=== PATIENT | female | born 1985 | race Caucasian/White ===

== ENCOUNTER 2017-10-20 16:05 | Emergency (ER) | payer BC ==
[2017-10-20] MEDS ORDERED: Ketorolac INJ* 30 MG/ML 1 ML VIAL IV PUSH ONE (16:37)
[2017-10-20] MEDS ORDERED: Metoclopramide IV* 5 MG/ML 2 ML VIAL IV ONE (16:37)
[2017-10-20] MEDS ORDERED: diPHENhydraMINE PO* 50 MG PO ONE (16:37)
[2017-10-20] MEDS ORDERED: NS 0.9% 1000 ML* 1,000 ML IV ONE (16:37)
[2017-10-20 19:27] VITALS: BP 122/65
--- NOTE | 2017-10-20 20:41 | ED ---
Ray Cortes Natalie, scribed for Ced Castañeda MD on 10/20/17 at 1714 . Headache - HPI Summary HPI Summary: The patient is a 32 y/o M presenting to the ED c/o severe headache with sudden onset an hour ago. The pain radiates from the base of her neck radiating to her nose. The pain is described as "inexplicably painful, most intense pounding headache ever." The pain is rated 8/10 in severity currently, but was 10/10 initially. Pt additionally c/o photophobia, nausea, vomiting, and generalized weakness. She used to have migraines when she was younger, and she had a similar headache during an episode when she fell and hit her head, resulting in a black out. She takes control and vitamins. - History Of Current Complaint Chief Complaint: EDHeadache Stated Complaint: HEADACHE Time Seen by Provider: 10/20/17 16:22 Hx Obtained From: Patient Onset/Duration: Sudden Onset, Still Present Initially Headache Was: "Worst Headache Ever", Initial Pain Scale(0-10)= - 10 Currently Pain Is: Current Pain Scale(0-10)= - 8 Timing: Constant Character: Throbbing Location of Headache: Occipital Radiates to: nose from both sides Aggravating Factor: Bright Lights Allevating Factors: Nothing Associated Signs And Symptoms: Nausea, Vomiting, Other (Noted In Comments) - photophobia, generalized weakness - Allergies/Home Medications Allergies/Adverse Reactions: Allergies Allergy/AdvReac Type Severity Reaction Status Date / Time No Known Allergies Allergy Verified 10/20/17 16:49 Home Medications: Home Medications Ethinyl Estradiol/Drospirenone [Chasity 28 Tablet (Nf)] 1 tab PO DAILY 10/20/17 [ History Confirmed 10/20/17] Vitamin TAB* 1 tab PO DAILY 10/20/17 [History Confirmed 10/20/17] PMH/Surg Hx/FS Hx/Imm Hx Endocrine/Hematology History: Denies: Hx Diabetes Neurological History: Reports: Hx Headaches, Hx Migraine Infectious Disease History: No Infectious Disease History: Denies: Traveled Outside the [place] in Last 30 Days - Family History Known Family History: Positive: Hypertension - Social History Alcohol Use: Occasionally Substance Use Type: Reports: None Smoking Status (MU): Never Smoked Tobacco Review of Systems Positive: Photophobia Positive: Vomiting, Nausea Positive: Headache, Weakness - generalized in the body All Other Systems Reviewed And Are Negative: Yes Physical Exam - Summary Physical Exam Summary: Appearance: The patient is well-nourished in no acute distress and in no acute pain. Skin: The skin is warm and dry and skin color reflects adequate perfusion. HEENT: The head is normocephalic and atraumatic. The pupils are equal and reactive. The conjunctivae are clear and without drainage. Nares are patent and without drainage. Mouth reveals moist mucous membranes and the throat is without erythema and exudate. The external ears are intact. The ear canals are patent and without drainage. The tympanic membranes are intact. Neck: The neck is supple with full range of motion and mild tenderness in the paracervical area. There are no carotid bruits. There is no neck vein distension. Respiratory: Chest is non-tender. Lungs are clear to auscultation and breath sounds are symmetrical and equal. Cardiovascular: Heart is regular rate and rhythm. There is no murmur or rub auscultated. There is no peripheral edema and pulses are symmetrical and equal. Abdomen: The abdomen is soft and non-tender. There are normal bowel sounds heard in all four quadrants and there is no organomegaly palpated. Musculoskeletal: There is no back tenderness noted. Extremities are non-tender with full range of motion. There is good capillary refill. There is no peripheral edema or calf tenderness elicited. Neurological: Patient is alert and oriented to person, place and time. The patient has symmetrical motor strength in all four extremities. Cranial nerves are grossly intact. Deep tendon reflexes are symmetrical and equal in all four extremities. Psychiatric: The patient has an appropriate affect and does not exhibit any anxiety or depression. Triage Information Reviewed: Yes Vital Signs On Initial Exam: Initial Vitals Temp Pulse Resp BP Pulse Ox 98.2 F 62 16 148/89 100 10/20/17 16:34 10/20/17 16:34 10/20/17 16:34 10/20/17 16:34 10/20/17 16:34 Vital Signs Reviewed: Yes Diagnostics - Vital Signs Vital Signs Temp Pulse Resp BP Pulse Ox 10/20/17 16:34 98.2 F 54 16 148/89 100 - Laboratory Lab Statement: Any lab studies that have been ordered have been reviewed, and results considered in the medical decision making process. Re-Evaluation - Re-Evaluation First Eval Re-Evaluation Time: 18:00 Change: Improved Comment: The patient's headache has almost completely been relieved. Second Eval Re-Evaluation Time: 19:00 Change: Improved Comment: I spoke with the patient about being discharged home. Headache Course/Dx - Course Course Of Treatment: Ms. Lorenzo presented with the sudden onset of an occipital and bilateral temporal headache that she describes as pounding. She has had a similar headache in the past. She drove here from [place] today for a baby shower and the headache occurred about 5 or 10 minutes after she got to the shower. Her exam was unremarkable and she was given a migraine cocktail of ketorolac, Benadryl and Reglan as well as IV normal saline. Within an hour she got complete relief of her headache and felt nearly 100% improved. - Diagnoses Provider Diagnoses: Headache Discharge - Sign-Out/Discharge Documenting (check all that apply): Discharge/Admit/Transfer - Discharge Plan Condition: Stable Disposition: HOME Patient Education Materials: Acute Headache (ED) Referrals: [facility] [place] [facility]ICIAN REFERRAL [Outside] - 3 Days Additional Instructions: Follow up with your primary care provider in 2-3 days. Return to the emergency department for any new or worsening symptoms. - Billing Disposition and Condition Condition: STABLE Disposition: HOME The documentation as recorded by the Ray esquivel Natalie accurately reflects the service I personally performed and the decisions made by me, Ced Castañeda MD.
== END 2017-10-20 19:26 | disposition home or self-care (01) ==
LOC: ED 16:05
DX: R51 Headache (principal); R11.2 Nausea with vomiting, unspecified; R53.1 Weakness
CPT/HCPCS: 96374; 96375; 99282; A9270-GY; J1885; J2765